=== PATIENT | male | born 1960 | race Caucasian/White ===

== ENCOUNTER 2019-11-19 12:46 | Outpatient (CLI) | payer OTHER | END 2019-11-19 12:52 | disposition home or self-care (01) | LOC: TOM 12:46 | PROVIDERS: ATTEND Specialist | DX: K42.9 Umbilical hernia without obstruction or gangrene (principal) ==

== ENCOUNTER 2019-11-21 12:57 | Outpatient (CLI) | payer OTHER | END 2019-11-21 13:16 | disposition home or self-care (01) | LOC: RAD 12:57 | PROVIDERS: ATTEND Specialist | DX: K42.9 Umbilical hernia without obstruction or gangrene (principal); Z01.811 Encounter for preprocedural respiratory examination ==

== ENCOUNTER 2019-11-22 07:52 | Outpatient (CLI) | payer OTHER | END 2019-11-22 12:40 | disposition home or self-care (01) | LOC: LAB 07:52 | PROVIDERS: ATTEND Specialist | DX: K42.9 Umbilical hernia without obstruction or gangrene (principal); Z01.812 Encounter for preprocedural laboratory examination ==

== ENCOUNTER 2019-11-25 05:00 | Day surgery (SDC) | payer OTHER | END 2019-11-25 15:50 | disposition home or self-care (01) | LOC: CIR.AMB 05:00 | PROVIDERS: ATTEND Specialist | DX: K42.9 Umbilical hernia without obstruction or gangrene (principal); Z20.828 Contact with and (suspected) exposure to other viral communicable diseases ==

== ENCOUNTER 2022-05-23 08:42 | Outpatient (CLI) | payer OTHER | END 2022-05-23 08:54 | disposition home or self-care (01) | LOC: TOM 08:42 | PROVIDERS: ATTEND Specialist | DX: R10.9 Unspecified abdominal pain (principal) ==

== ENCOUNTER 2024-04-10 07:29 | Outpatient (CLI) | payer OTHER | END 2024-04-10 07:41 | disposition home or self-care (01) | LOC: SONOGRAMA 07:29 | PROVIDERS: ATTEND Specialist | DX: N19 Unspecified kidney failure (principal); N17.9 Acute kidney failure, unspecified ==

== ENCOUNTER 2024-04-15 10:26 | Outpatient (CLI) | payer OTHER | END 2024-04-15 10:27 | disposition home or self-care (01) | LOC: NUCLEAR 10:26 | PROVIDERS: ATTEND Specialist | DX: I87.2 Venous insufficiency (chronic) (peripheral) (principal); I82.409 Acute embolism and thrombosis of unspecified deep veins of unspecified lower extremity ==